=== PATIENT | male | born 1955 | race Caucasian/White ===

== ENCOUNTER 2016-08-27 23:06 | Emergency (ER) | payer MEDICAID ==
[~2016-08-27] VITALS: Ht 177.8 cm; Wt 85.3 kg
[2016-08-27 23:06] VITALS: BP_SYST 133
[2016-08-27] MEDS ORDERED: HYDROcodone/ACETAMIN 5-325 MG TAB (NORCO/ VICODIN) PO ONE (23:30)
[2016-08-27 23:47] VITALS: BP_SYST 133
== END 2016-08-27 23:47 | disposition home or self-care (01) ==
LOC: SED 23:06
DX: R07.89 Other chest pain (principal)
CPT/HCPCS: 71100; 99284